=== PATIENT | male | born 1935 | race Caucasian/White ===

== ENCOUNTER 2016-11-25 09:21 | Emergency (ER) | payer MEDICARE ==
[~2016-11-25] VITALS: Ht 167.6 cm; Wt 61.0 kg
[~2016-11-25 09:21] MED LIST: ASPI1TAB69 PO; METO25TA3 PO; MULT1TAB84 PO; NITR1SUB3 SL; PLAV75TA29 PO; PRAV40TA2 PO; RANI150T PO; SYMB80AE INH; VITA100064 PO; VITA500T PO
[2016-11-25 09:22] VITALS: BP 113/62; PULSE 83; RESP 17; TEMP 97.6; O2SAT 96
[2016-11-25] MEDS ORDERED: ASPI81TA11 PO (10:25)
[2016-11-25] MEDS ORDERED: MULTCAP3 PO (10:25)
[2016-11-25] MEDS ORDERED: AUGM500T7 PO (10:45)
--- NOTE | 2016-11-25 10:46 | PD ---
HPI Chief Complaint: Bite or Sting Time Seen by Provider: 10:35 Travel History International Travel<30 days: No Contact w/Intl Traveler<30days: No Traveled to known affect area: No History of Present Illness HPI This 81-year-old male was bitten by his dog this morning. He was picking up the dog and apparently hurt it in some way. The dog bit him in the right forearm. He does not have any numbness or tingling. He does take Plavix as he has a heart stent. His skin is fragile and tears easily. The bleeding has stopped spontaneously. He is not having much pain. PFSH Past Medical History Hx Anticoagulant Therapy: Yes High Cholesterol: Yes Cerebrovascular Accident: Yes (X 2) GERD: Yes Hypertension: Yes Past Surgical History Cholecystectomy: Yes Joint Replacement: Yes (LEFT TOTAL SHOULDER) Social History Alcohol Use: No (QUIT 1977) Tobacco Use: No (FORMER) Substance Use: No Allergies-Medications (Allergen,Severity, Reaction): Coded Allergies: alendronate sodium (Unverified Allergy, Intermediate, unknown, 11/25/16) Reported Meds & Prescriptions Reported Meds & Active Scripts Active Pravastatin 40 Mg Tab 40 Mg PO DAILY Metoprolol Tartrate 25 Mg Tab 0.5 Mg PO BID Plavix (Clopidogrel Bisulfate) 75 Mg Tab 75 Mg PO DAILY Reported Aspirin EC (Aspirin) 81 Mg Tabdr 81 Mg PO DAILY Multivitamins (Multiple Vitamin) 1 Cap Cap 1 Tab PO DAILY Symbicort Inh (Budesonide/Formoterol Fumarate) 80-4.5 Mcg/Act Aero 2 Puff INH Q12HR Vitamin D3 (Cholecalciferol) 1,000 Unit Tab 1,000 Units PO DAILY Nitroglycerin SL (Nitroglycerin) 0.4 Mg Subl 0.4 Mg SL DIRECTED PRN ONE TABLET UNDER THE TONGUE NEEDED FOR CHEST PAIN, MAY REPEAT EVERY FIVE MINUTES FOR A TOTAL OF 3 DOSES OR CALL 911 IF NO RELIEF Review of Systems General / Constitutional: No: Fever, Chills Eyes: No: Diploplia, Blurred Vision HENT: No: Headaches Cardiovascular: No: Chest Pain or Discomfort Respiratory: No: Cough Gastrointestinal: No: Nausea, Vomiting Genitourinary: No: Urgency, Frequency Musculoskeletal: No: Myalgias Skin: No Rash Neurologic: No: Weakness Physical Exam Narrative GENERAL: Well-developed male SKIN: Focused skin assessment warm/dry. There are multiple ecchymotic areas. On the right forearm he has several puncture wounds that appear superficial with some associated bruising. There is no active bleeding HEAD: Atraumatic. Normocephalic. EYES: Pupils equal and round. No scleral icterus. No injection or drainage. ENT: No nasal bleeding or discharge. Mucous membranes pink and moist. NECK: Trachea midline. No JVD. CARDIOVASCULAR: Regular rate and rhythm. No murmur appreciated. RESPIRATORY: No accessory muscle use. Clear to auscultation. Breath sounds equal bilaterally. GASTROINTESTINAL: Abdomen soft, non-tender, nondistended. Hepatic and splenic margins not palpable. MUSCULOSKELETAL: No obvious deformities. No clubbing. No cyanosis. No edema. He has good strength in the affected arm and sensation is intact NEUROLOGICAL: Awake and alert. No obvious cranial nerve deficits. Motor grossly within normal limits. Normal speech. PSYCHIATRIC: Appropriate mood and affect; insight and judgment normal. Data Data Last Documented VS Vital Signs Date Time Temp Pulse Resp B/P (MAP) Pulse Ox O2 Delivery O2 Flow Rate FiO2 11/25/16 09:22 97.6 83 17 113/62 (79) 96 MDM Medical Decision Making Medical Screen Exam Complete: Yes Emergency Medical Condition: Yes Medical Record Reviewed: Yes Differential Diagnosis Differential includes dog bite right forearm Narrative Course This wound does not require suture repair. He will be placed on Augmentin 500 3 times a day for 5 days. Tetanus will be updated Diagnosis Primary Impression: Dog bite of right arm Qualified Codes: S41.151A - Open bite of right upper arm, initial encounter; W54.0XXA - Bitten by dog, initial encounter Additional Instructions: Return if redness, increased pain, purulent drainage, fever Scripts Amoxicillin-Clavulanate (Augmentin) 500-125 mg Tab 500 MG PO Q8H for Infection for 5 Days, TAB 0 Refills Prov: Dmitriy Shaffer MD 11/25/16 Disposition: 01 DISCHARGE HOME Condition: Stable Dmitriy Shaffer MD Nov 25, 2016 10:46
[2016-11-25] MEDS ORDERED: TETANUS/DIPHTHERIA TOXOID ADULT 0.5 ML VIAL IM ONE (11:00)
== END 2016-11-25 11:01 | disposition home or self-care (01) ==
LOC: PHED 09:21 → PHEFT 11:01
DX: S51.851A Open bite of right forearm, initial encounter (principal); W54.0XXA Bitten by dog, initial encounter; Z23 Encounter for immunization
CPT/HCPCS: 90471; 90714

== ENCOUNTER 2017-12-11 00:25 | Inpatient (IN) ==
[2017-12-11] MEDS ORDERED: Sod Chloride 0.9% Inj 1,000 ML IV.SIG ONE (03:33)
[2017-12-11 04:02] LABS: Baso % (Auto) 0.5 % (0.0-2.0); Eos # (Auto) 0.2 th/mm3 (0.0-0.4); Hematocrit 49.8 % (39.0-51.0); Hemoglobin 17.1 gm/dL (13.0-17.0); Lymph # (Auto) 1.5 th/mm3 (1.0-4.8); Lymph % (Auto) 17.3 % (9.0-44.0); Mean Corpuscular HGB Conc 34.4 % (32.0-36.0); Mean Corpuscular Hemoglobin 33.6 pg (27.0-34.0); Mean Corpuscular Volume 97.8 fL (80.0-100.0); Mean Platelet Volume 10.1 fL (7.0-11.0); Mono # (Auto) 0.8 th/mm3 (0.0-0.9); Mono % (Auto) 9.4 % (0.0-8.0); Neut # (Auto) 5.9 th/mm3 (1.8-7.7); Neut % (Auto) 69.8 % (16.0-70.0); Platelet Count 120 th/mm3 (150-450); Red Cell Distribution Width 12.8 % (11.6-17.2); White Blood Count 8.4 th/mm3 (4.0-11.0)
[2017-12-11 04:12] LABS: Activated Partial Thrombo Time 22.4 sec (23.4-31.7); Prothrombin Time 10.6 sec (9.8-11.6)
[2017-12-11 04:18] LABS: Albumin 4.6 g/dL (3.4-5.0); Anion Gap 5 meq/L (5-15); Aspartate Aminotransferase 29 U/L (15-37); Blood Urea Nitrogen 23 mg/dL (7-18); Calcium 9.7 mg/dL (8.5-10.1); Carbon Dioxide 32.8 meq/L (21.0-32.0); Chloride 101 meq/L (98-107); Glomerular Filtration Rate 68 mL/min (>89); Glucose,Random 86 mg/dL (74-106); Potassium 4.2 meq/L (3.5-5.1); Sodium 139 meq/L (136-145)
[2017-12-11 04:19] LABS: Alanine Aminotransferase 44 U/L (12-78)
[2017-12-11 04:22] LABS: Alkaline Phosphatase 102 U/L (45-117); Total Protein 8.4 g/dL (6.4-8.2)
--- NOTE | 2017-12-11 04:30 | ED ---
HPI General Chief complaint: GI Bleed Stated complaint: Gu Time Seen by Provider: 12/11/17 03:01 Source: patient Mode of arrival: ambulatory Limitations: no limitations History of Present Illness HPI Narrative: 82-year-old male came to the emergency room with history of pain and rectal bleeding. Patient says that last night he had a sharp pain in his right lower quadrant that lasted for a few seconds followed by an urge to move his bowels. When he went to the bathroom he noticed that he had liquid stool which was mostly blood. Followed by that episode he had 4 or 5 more episodes of bright red blood. These were all painless. Patient denies any lightheadedness, dizziness or syncopal episode. He has never had rectal bleeding like this before. Patient says that he had a colonoscopy many years ago and is not sure about the result. He was hemodynamically stable upon arrival. He is awake and answering questions appropriately. He seems little anxious but in no distress. No history of vomiting. Patient is on aspirin and Plavix. complaint: Reports gross hematochezia Onset (ago): hour(s) Pain Consistency: intermittent Severity: moderate Relieving factors: none Exacerbating factors: none Associated symptoms: Reports denies other symptoms Treatments Prior to Arrival: Reports none Related Data Home Medications Medication Instructions Recorded Confirmed aspirin [Aspir-Low] 81 mg PO DAILY 09/25/17 12/11/17 clopidogrel [Plavix] 75 mg PO DAILY 09/25/17 12/11/17 pravastatin 40 mg PO DAILY 09/25/17 12/11/17 Previous Rx's Medication Instructions Recorded pantoprazole [Protonix] 40 mg PO BID #60 tab 12/12/17 sennosides-docusate sodium [Senna 1 tab PO BID #60 tab 12/12/17 Plus] Allergies Allergy/AdvReac Type Severity Reaction Status Date / Time alendronate sodium Allergy Intermediate unknown Verified 12/11/17 00:47 Review of Systems ROS: all other systems reviewed are negative [facility] Medical History Medical History High cholesterol (Acute) Hypertension (Acute) Stroke (Acute) Surgical History Surgical History History of heart artery stent (Acute) History of total replacement of left shoulder joint (Acute) Hx of arthroscopy of left knee (Acute) Hx of cholecystectomy (Acute) Family History Family History Other Family history of hypertension Social History Social History Substance History: No History of Abuse Second Hand Smoke Exposure: No Smoking Status: Former smoker Tobacco Type: Cigarettes How Often Do You Have a Drink Containing Alcohol: Never Hx Recent Travel: No Recent Travel in [facility] within the Last 8 Weeks: No Recent Out of Country Travel within the Last 8 Weeks: No Immunization History Tetanus Immunization: <5 Years Exam Narrative Exam Narrative: GENERAL: Awake, alert, anxious, no obvious distress SKIN: Focused skin assessment warm/dry. HEAD: Atraumatic. Normocephalic. EYES: Pupils equal and round. No scleral icterus. No injection or drainage. ENT: No nasal bleeding or discharge. Mucous membranes pink and moist. NECK: Trachea midline. No JVD. CARDIOVASCULAR: Regular rate and rhythm. No murmur appreciated. RESPIRATORY: No accessory muscle use. Clear to auscultation. Breath sounds equal bilaterally. GASTROINTESTINAL: Abdomen soft, non-tender, nondistended. Hepatic and splenic margins not palpable. MUSCULOSKELETAL: No obvious deformities. No clubbing. No cyanosis. No edema. NEUROLOGICAL: Awake and alert. No obvious cranial nerve deficits. Motor grossly within normal limits. Normal speech. PSYCHIATRIC: Appropriate mood and affect; insight and judgment normal. Procedures Hemaprompt Stool Procedural Steps Taken: specimen placed in appropriate test area, developer placed on specimen and control areas and controls appropriately positive and negative Hemaprompt Stool Result: positive Additional Comments: Gross blood on the gloved finger Course Initial Documented Vital Signs Temperature 97.7 F 12/11/17 00:44 Pulse Rate 75 12/11/17 00:44 Respiratory Rate 18 12/11/17 00:44 Blood Pressure 159/69 H 12/11/17 00:44 Pulse Oximetry 96 12/11/17 00:44 Last Documented Vital Signs Temperature 98.1 F 12/12/17 16:00 Pulse Rate 104 H 12/12/17 16:00 Respiratory Rate 18 12/12/17 16:00 Blood Pressure 122/73 12/12/17 16:00 Pulse Oximetry 94 L 12/12/17 16:00 Medical Decision Making MDM Narrative Medical decision making narrative: 4:36 AM blood test results are back and within acceptable limits. Patient was given IV fluid bolus. He will require hospitalization and a GI consultation. I discussed the case with the hospitalist was accepted the patient. Medical Screen Exam Complete: Yes Emergency Medical Condition: Yes Lab Data Result diagrams: 12/12/17 12:02 12/12/17 04:37 Lab Results 12/11/17 12/11/17 12/11/17 Range/Units 03:54 03:54 03:54 WBC 8.4 (4.0-11.0) th/mm3 RBC 5.10 (4.50-5.90) mil/mm3 Hgb 17.1 H (13.0-17.0) gm/dL Hct 49.8 (39.0-51.0) % MCV 97.8 (80.0-100.0) fL MCH 33.6 (27.0-34.0) pg MCHC 34.4 (32.0-36.0) % RDW 12.8 (11.6-17.2) % Plt Count 120 L (150-450) th/mm3 MPV 10.1 (7.0-11.0) fL Neut % (Auto) 69.8 (16.0-70.0) % Lymph % (Auto) 17.3 (9.0-44.0) % Caldwell % (Auto) 9.4 H (0.0-8.0) % Eos % (Auto) 3.0 (0.0-4.0) % Baso % (Auto) 0.5 (0.0-2.0) % Neut # (Auto) 5.9 (1.8-7.7) th/mm3 Lymph # (Auto) 1.5 (1.0-4.8) th/mm3 Caldwell # (Auto) 0.8 (0.0-0.9) th/mm3 Eos # (Auto) 0.2 (0.0-0.4) th/mm3 Baso # (Auto) 0.0 (0.0-0.2) th/mm3 WBC Differential . Differential Comment Auto diff final PT 10.6 (9.8-11.6) sec INR 1.0 Ratio APTT 22.4 L (23.4-31.7) sec Sodium 139 (136-145) meq/L Potassium 4.2 (3.5-5.1) meq/L Chloride 101 (98-107) meq/L Carbon Dioxide 32.8 H (21.0-32.0) meq/L Anion Gap 5 (5-15) meq/L BUN 23 H (7-18) mg/dL Creatinine 1.04 (0.60-1.30) mg/dL Estimated GFR 68 L (>89) mL/min Random Glucose 86 (74-106) mg/dL Hemoglobin A1c (4.3-6.0) % Calcium 9.7 (8.5-10.1) mg/dL Phosphorus (2.5-4.9) mg/dL Magnesium (1.5-2.5) mg/dL Total Bilirubin 0.7 (0.2-1.0) mg/dL AST 29 (15-37) U/L ALT 44 (12-78) U/L Alkaline Phosphatase 102 (45-117) U/L Total Protein 8.4 H (6.4-8.2) g/dL Albumin 4.6 (3.4-5.0) g/dL TSH (0.358-3.740) uIU/mL Free T4 (0.76-1.46) ng/dL Blood Type Blood Type Recheck Antibody Screen 12/11/17 12/11/17 12/11/17 Range/Units 03:54 15:45 15:45 WBC (4.0-11.0) th/mm3 RBC (4.50-5.90) mil/mm3 Hgb 15.3 (13.0-17.0) gm/dL Hct (39.0-51.0) % MCV (80.0-100.0) fL MCH (27.0-34.0) pg MCHC (32.0-36.0) % RDW (11.6-17.2) % Plt Count (150-450) th/mm3 MPV (7.0-11.0) fL Neut % (Auto) (16.0-70.0) % Lymph % (Auto) (9.0-44.0) % Caldwell % (Auto) (0.0-8.0) % Eos % (Auto) (0.0-4.0) % Baso % (Auto) (0.0-2.0) % Neut # (Auto) (1.8-7.7) th/mm3 Lymph # (Auto) (1.0-4.8) th/mm3 Caldwell # (Auto) (0.0-0.9) th/mm3 Eos # (Auto) (0.0-0.4) th/mm3 Baso # (Auto) (0.0-0.2) th/mm3 WBC Differential Differential Comment PT (9.8-11.6) sec INR Ratio APTT (23.4-31.7) sec Sodium (136-145) meq/L Potassium (3.5-5.1) meq/L Chloride (98-107) meq/L Carbon Dioxide (21.0-32.0) meq/L Anion Gap (5-15) meq/L BUN (7-18) mg/dL Creatinine (0.60-1.30) mg/dL Estimated GFR (>89) mL/min Random Glucose (74-106) mg/dL Hemoglobin A1c 5.3 (4.3-6.0) % Calcium (8.5-10.1) mg/dL Phosphorus (2.5-4.9) mg/dL Magnesium (1.5-2.5) mg/dL Total Bilirubin (0.2-1.0) mg/dL AST (15-37) U/L ALT (12-78) U/L Alkaline Phosphatase (45-117) U/L Total Protein (6.4-8.2) g/dL Albumin (3.4-5.0) g/dL TSH (0.358-3.740) uIU/mL Free T4 (0.76-1.46) ng/dL Blood Type A Positive Blood Type Recheck Required Antibody Screen Negative 12/11/17 12/12/17 12/12/17 Range/Units 16:04 00:59 04:37 WBC 9.0 (4.0-11.0) th/mm3 RBC 4.37 L (4.50-5.90) mil/mm3 Hgb 15.0 14.5 (13.0-17.0) gm/dL Hct 42.7 (39.0-51.0) % MCV 97.8 (80.0-100.0) fL MCH 33.2 (27.0-34.0) pg MCHC 34.0 (32.0-36.0) % RDW 12.7 (11.6-17.2) % Plt Count 109 L (150-450) th/mm3 MPV 10.3 (7.0-11.0) fL Neut % (Auto) 74.4 H (16.0-70.0) % Lymph % (Auto) 13.3 (9.0-44.0) % Caldwell % (Auto) 9.5 H (0.0-8.0) % Eos % (Auto) 2.4 (0.0-4.0) % Baso % (Auto) 0.4 (0.0-2.0) % Neut # (Auto) 6.7 (1.8-7.7) th/mm3 Lymph # (Auto) 1.2 (1.0-4.8) th/mm3 Caldwell # (Auto) 0.9 (0.0-0.9) th/mm3 Eos # (Auto) 0.2 (0.0-0.4) th/mm3 Baso # (Auto) 0.0 (0.0-0.2) th/mm3 WBC Differential . Differential Comment Auto diff final PT (9.8-11.6) sec INR Ratio APTT (23.4-31.7) sec Sodium (136-145) meq/L Potassium (3.5-5.1) meq/L Chloride (98-107) meq/L Carbon Dioxide (21.0-32.0) meq/L Anion Gap (5-15) meq/L BUN (7-18) mg/dL Creatinine (0.60-1.30) mg/dL Estimated GFR (>89) mL/min Random Glucose (74-106) mg/dL Hemoglobin A1c (4.3-6.0) % Calcium (8.5-10.1) mg/dL Phosphorus (2.5-4.9) mg/dL Magnesium (1.5-2.5) mg/dL Total Bilirubin (0.2-1.0) mg/dL AST (15-37) U/L ALT (12-78) U/L Alkaline Phosphatase (45-117) U/L Total Protein (6.4-8.2) g/dL Albumin (3.4-5.0) g/dL TSH 1.120 (0.358-3.740) uIU/mL Free T4 1.01 (0.76-1.46) ng/dL Blood Type Blood Type Recheck Antibody Screen 12/12/17 12/12/17 12/12/17 Range/Units 04:37 08:21 12:02 WBC (4.0-11.0) th/mm3 RBC (4.50-5.90) mil/mm3 Hgb 15.9 14.9 (13.0-17.0) gm/dL Hct (39.0-51.0) % MCV (80.0-100.0) fL MCH (27.0-34.0) pg MCHC (32.0-36.0) % RDW (11.6-17.2) % Plt Count (150-450) th/mm3 MPV (7.0-11.0) fL Neut % (Auto) (16.0-70.0) % Lymph % (Auto) (9.0-44.0) % Caldwell % (Auto) (0.0-8.0) % Eos % (Auto) (0.0-4.0) % Baso % (Auto) (0.0-2.0) % Neut # (Auto) (1.8-7.7) th/mm3 Lymph # (Auto) (1.0-4.8) th/mm3 Caldwell # (Auto) (0.0-0.9) th/mm3 Eos # (Auto) (0.0-0.4) th/mm3 Baso # (Auto) (0.0-0.2) th/mm3 WBC Differential Differential Comment PT (9.8-11.6) sec INR Ratio APTT (23.4-31.7) sec Sodium 142 (136-145) meq/L Potassium 4.1 (3.5-5.1) meq/L Chloride 104 (98-107) meq/L Carbon Dioxide 27.0 (21.0-32.0) meq/L Anion Gap 11 (5-15) meq/L BUN 14 (7-18) mg/dL Creatinine 0.78 (0.60-1.30) mg/dL Estimated GFR Greater than 89 (>89) mL/min Random Glucose 72 L (74-106) mg/dL Hemoglobin A1c (4.3-6.0) % Calcium 8.3 L D (8.5-10.1) mg/dL Phosphorus 2.1 L (2.5-4.9) mg/dL Magnesium 2.1 (1.5-2.5) mg/dL Total Bilirubin 0.9 (0.2-1.0) mg/dL AST 37 (15-37) U/L ALT 39 (12-78) U/L Alkaline Phosphatase 91 (45-117) U/L Total Protein 6.6 D (6.4-8.2) g/dL Albumin 3.6 D (3.4-5.0) g/dL TSH (0.358-3.740) uIU/mL Free T4 (0.76-1.46) ng/dL Blood Type Blood Type Recheck Antibody Screen Imaging Data Radiologist's impression: Abdomen/Pelvis CT 12/11/17 00:00 CONCLUSION: 1. Ruben diverticulosis without perceptible diverticulitis or other acute inflammatory changes. No well-defined or measurable mass. 2. Small hiatal hernia. 3. Liver is mild fatty infiltrated. Previous cholecystectomy. 4. A few benign-appearing cysts of each kidney. Also a small nonobstructing stone of the left kidney. 5. Chronic compression deformity of L2. No acute bony abnormality seen. Discharge Plan Discharge Disposition Patient Disposition: 30 Still Patient Discharge Condition Condition: Good Discharge Order Discharge Orders: Discharge Order (Routine); Ordered 12/12/17 Ordered By: Isidoro Daly Discharge Details Anticipated Discharge Date: 12/12/17 Discharge Comment: DC TO HOME TODAY Physicians Team ED Provider: Robi Lemos Primary Care Provider: Wilma Dominguez Attending Provider: Isidoro Daly Other Providers: Alexandra Redd Status ED Status: Left Department Discharge Information Discharge Date/Time: 12/11/17 07:30
[2017-12-11] MEDS ORDERED: Bisacodyl 10 MG Supp RECTAL PRN ×2 (04:33→15:41)
[2017-12-11] MEDS: Sod Chloride 0.9% Inj 1,000 ML IV.CONT SCH (05:15)
[2017-12-11] MEDS ORDERED: Diatrizoate Meglum/Diatrizoate Sod Liq 9 ML UDC PO ONE (09:00)
--- NOTE | 2017-12-11 09:15 | P.CONGI ---
History of Present Illness Consult date: 12/11/17 Chief complaint: GI BLEED, HEMATOCHEZIA History of Present Illness: This is 82-year-old male with pmh of cardiac stents on aspirin and Plavix who presented with abd pain and rectal bleeding. Patient says that last night he had a sharp pain in his right lower quadrant that lasted for a few seconds followed by an urge to move his bowels, then he had liquid stool which was mostly blood followed by more episodes of nothing but blood which was mix of dark and bright blood. He was going every half hr, had one episode this morning as well. Patient denies previous hx of this. Patient had a colonoscopy many years ago. He is hemodynamically stable. Denies nausea, vomiting, hematemesis. hgb today is 17.1 <Mercedes Cueva - Last Filed: 12/11/17 09:16> Chief complaint: GI bleed, hematochezia <Alexandra Redd - Last Filed: 12/11/17 19:21> Review of Systems All other systems reviewed negative except as stated in HPI <Mercedes Cueva - Last Filed: 12/11/17 09:16> PMFSH - History History Provided By: Patient - Medical History Medical History: Medical History (Last Reviewed 12/11/17 @ 06:22 by Krysta Daniel RN) High cholesterol Hypertension Stroke - Surgical History Surgical History: Surgical History (Last Reviewed 12/11/17 @ 06:22 by Krysta Daniel RN) History of heart artery stent History of total replacement of left shoulder joint Hx of arthroscopy of left knee Hx of cholecystectomy - Tobacco History Second Hand Smoke Exposure: No Tobacco Use In Past 30 Days: No Smoking Status: Former smoker Tobacco Type: Cigarettes - Alcohol History How Often Do You Have a Drink Containing Alcohol: Never - Substance Use History Substance History: No History of Abuse - Travel History Recent Travel in the [place] Within the Last 8 Weeks: No Recent Travel Out of the Country Within the Last 8 Weeks: No - Immunization History Tetanus Immunization: <5 Years <Mercedes Cueva - Last Filed: 12/11/17 09:16> - Medical History Medical History: Medical History (Last Reviewed 12/11/17 @ 15:34 by Isidoro Daly DO) High cholesterol Hypertension Stroke - Surgical History Surgical History: Surgical History (Last Reviewed 12/11/17 @ 15:34 by Isidoro Daly DO) History of heart artery stent History of total replacement of left shoulder joint Hx of arthroscopy of left knee Hx of cholecystectomy - Family History Family History: Family History (Last Updated 12/11/17 @ 15:34 by Isidoro Daly DO) Other Family history of hypertension <Alexandra Redd - Last Filed: 12/11/17 19:21> Medications and Allergies Active Medications: Active Medications Al Hydroxide/Mg Hydroxide (Milk Of Magnesia Liq) 30 ml PO Q12H PRN PRN Reason: Mild Constipation Bisacodyl (Dulcolax Supp) 10 mg RECTAL DAILY PRN PRN Reason: SEVERE CONSITIPATION Sodium Chloride (Ns Inj) 1,000 mls @ 70 mls/hr IV.CONT .[id number] [facility] Last Admin: 12/11/17 05:15 Dose: 70 mls/hr Lactulose (Lactulose Liq) 30 ml PO DAILY PRN PRN Reason: SEVERE CONSITIPATION Sennosides (Senokot) 17.2 mg PO Q12H PRN PRN Reason: Moderate Constipation Sodium Chloride (Ns Flush) 2 ml IV.FLUSH PRN PRN PRN Reason: FLUSH AFTER USING IV ACCESS <Mercedes Cueva - Last Filed: 12/11/17 09:16> Active Medications: Active Medications Al Hydroxide/Mg Hydroxide (Milk Of Magnesia Liq) 30 ml PO Q12H PRN PRN Reason: Mild Constipation Bisacodyl (Dulcolax Supp) 10 mg RECTAL DAILY PRN PRN Reason: SEVERE CONSITIPATION Sodium Chloride (Ns Inj) 1,000 mls @ 70 mls/hr IV.CONT .[id number] [facility] Last Admin: 12/11/17 05:15 Dose: 70 mls/hr Lactulose (Lactulose Liq) 30 ml PO DAILY PRN PRN Reason: SEVERE CONSITIPATION Pantoprazole Sodium (Protonix Inj) 40 mg IV.PUSH Q12H [facility] Last Admin: 12/11/17 11:24 Dose: 40 mg Polyethylene Glycol/Electrolytes (Colyte Liq) 4,000 ml PO ONCE ONE Stop: 12/11/17 16:01 Sennosides (Senokot) 17.2 mg PO Q12H PRN PRN Reason: Moderate Constipation Sodium Chloride (Ns Flush) 2 ml IV.FLUSH PRN PRN PRN Reason: FLUSH AFTER USING IV ACCESS <Alexandra Redd - Last Filed: 12/11/17 19:21> Allergies Allergy/AdvReac Type Severity Reaction Status Date / Time alendronate sodium Allergy Intermediate unknown Verified 12/11/17 00:47 Home Medications Medication Instructions Recorded Confirmed Type aspirin [Aspir-Low] 81 mg PO DAILY 09/25/17 12/11/17 History clopidogrel [Plavix] 75 mg PO DAILY 09/25/17 12/11/17 History pravastatin 40 mg PO DAILY 09/25/17 12/11/17 History Exam Vital signs: Vital Signs 12/11/17 00:44 12/11/17 00:47 12/11/17 03:37 Temperature 97.7 F Pulse Rate 75 75 Respiratory Rate 18 18 Blood Pressure 159/69 H 169/84 H Pulse Oximetry 96 95 97 12/11/17 04:12 12/11/17 07:11 12/11/17 08:00 Temperature 97.8 F 97.2 F L Pulse Rate 83 95 H Respiratory Rate 18 Blood Pressure 161/76 H 148/96 H Pulse Oximetry 98 93 L Intake & Output 12/10/17 12/11/17 12/11/17 19:59 06:59 18:59 Intake Total Balance Weight Intake: IV NS Inj 1,000 ML @ Wide Open IV. SIG BOLUS ONE Rx#:[id number] - Constitutional no acute distress - Routine HEENT Exam Head: Present: normocephalic - Routine Neck Exam Present: supple - Routine Cardiovascular Exam Present: RRR - Routine Abdominal Exam Present: soft, normoactive bowel sounds. Absent: tenderness, distended - Routine Neurological Exam Present: alert, oriented X3 <Mercedes Cueva - Last Filed: 12/11/17 09:16> Vital signs: Vital Signs 12/11/17 00:44 12/11/17 00:47 12/11/17 03:37 Temperature 97.7 F Pulse Rate 75 75 Respiratory Rate 18 18 Blood Pressure 159/69 H 169/84 H Pulse Oximetry 96 95 97 12/11/17 04:12 12/11/17 07:11 12/11/17 08:00 Temperature 97.8 F 97.2 F L Pulse Rate 83 95 H Respiratory Rate 18 Blood Pressure 161/76 H 148/96 H Pulse Oximetry 98 93 L 12/11/17 12:00 Temperature 97.3 F L Pulse Rate 89 Respiratory Rate 18 Blood Pressure 152/84 H Pulse Oximetry 96 Intake & Output 12/10/17 12/11/17 12/11/17 19:59 06:59 18:59 Intake Total Balance Weight Intake: IV NS Inj 1,000 ML @ Wide Open IV. SIG BOLUS ONE Rx#:[id number] <Alexandra Redd - Last Filed: 12/11/17 19:21> Results - Labs CBC & Chem 7: 12/11/17 03:54 12/11/17 03:54 Labs: Laboratory Results - last 24 hr 12/11/17 12/11/17 12/11/17 03:54 03:54 03:54 WBC 8.4 RBC 5.10 Hgb 17.1 H Hct 49.8 MCV 97.8 MCH 33.6 MCHC 34.4 RDW 12.8 Plt Count 120 L MPV 10.1 Neut % (Auto) 69.8 Lymph % (Auto) 17.3 [place] % (Auto) 9.4 H Eos % (Auto) 3.0 Baso % (Auto) 0.5 Neut # (Auto) 5.9 Lymph # (Auto) 1.5 [place] # (Auto) 0.8 Eos # (Auto) 0.2 Baso # (Auto) 0.0 WBC Differential . Differential Comment Auto diff final PT 10.6 INR 1.0 APTT 22.4 L Sodium 139 Potassium 4.2 Chloride 101 Carbon Dioxide 32.8 H Anion Gap 5 BUN 23 H Creatinine 1.04 Estimated GFR 68 L Random Glucose 86 Calcium 9.7 Total Bilirubin 0.7 AST 29 ALT 44 Alkaline Phosphatase 102 Total Protein 8.4 H Albumin 4.6 Blood Type Blood Type Recheck Antibody Screen 12/11/17 03:54 WBC RBC Hgb Hct MCV MCH MCHC RDW Plt Count MPV Neut % (Auto) Lymph % (Auto) [place] % (Auto) Eos % (Auto) Baso % (Auto) Neut # (Auto) Lymph # (Auto) [place] # (Auto) Eos # (Auto) Baso # (Auto) WBC Differential Differential Comment PT INR APTT Sodium Potassium Chloride Carbon Dioxide Anion Gap BUN Creatinine Estimated GFR Random Glucose Calcium Total Bilirubin AST ALT Alkaline Phosphatase Total Protein Albumin Blood Type A Positive Blood Type Recheck Required Antibody Screen Negative <Mercedes Cueva - Last Filed: 12/11/17 09:16> - Labs CBC & Chem 7: 12/11/17 15:45 12/11/17 03:54 Labs: Laboratory Results - last 24 hr 12/11/17 12/11/17 12/11/17 03:54 03:54 03:54 WBC 8.4 RBC 5.10 Hgb 17.1 H Hct 49.8 MCV 97.8 MCH 33.6 MCHC 34.4 RDW 12.8 Plt Count 120 L MPV 10.1 Neut % (Auto) 69.8 Lymph % (Auto) 17.3 [place] % (Auto) 9.4 H Eos % (Auto) 3.0 Baso % (Auto) 0.5 Neut # (Auto) 5.9 Lymph # (Auto) 1.5 [place] # (Auto) 0.8 Eos # (Auto) 0.2 Baso # (Auto) 0.0 WBC Differential . Differential Comment Auto diff final PT 10.6 INR 1.0 APTT 22.4 L Sodium 139 Potassium 4.2 Chloride 101 Carbon Dioxide 32.8 H Anion Gap 5 BUN 23 H Creatinine 1.04 Estimated GFR 68 L Random Glucose 86 Calcium 9.7 Total Bilirubin 0.7 AST 29 ALT 44 Alkaline Phosphatase 102 Total Protein 8.4 H Albumin 4.6 Blood Type Blood Type Recheck Antibody Screen 12/11/17 03:54 WBC RBC Hgb Hct MCV MCH MCHC RDW Plt Count MPV Neut % (Auto) Lymph % (Auto) [place] % (Auto) Eos % (Auto) Baso % (Auto) Neut # (Auto) Lymph # (Auto) [place] # (Auto) Eos # (Auto) Baso # (Auto) WBC Differential Differential Comment PT INR APTT Sodium Potassium Chloride Carbon Dioxide Anion Gap BUN Creatinine Estimated GFR Random Glucose Calcium Total Bilirubin AST ALT Alkaline Phosphatase Total Protein Albumin Blood Type A Positive Blood Type Recheck Required Antibody Screen Negative <Alexandra Redd - Last Filed: 12/11/17 19:21> Assessment and Plan - Plan - LGIB/abd pain- Patient says that last night he had a sharp pain in his right lower quadrant that lasted for a few seconds followed by an urge to move his bowels, then he had liquid stool which was mostly blood followed by more episodes of nothing but blood which was mix of dark and bright blood. He was going every half hr, had one episode this morning as well. Patient denies previous hx of this. Patient had a colonoscopy many years ago. He is hemodynamically stable. Denies nausea, vomiting, hematemesis. hgb today is 17.1 - pmh of cardiac stents on aspirin and Plavix (on hold) Plan: - Clear liquid - CT of a/p - Serial HH - Transfuse as needed - IV hydration - PPI - Golytely today - Colonoscopy in the am - NPO mn - Supportive care - Pt seen and examined by Dr. Redd and myself and this note is written on her behalf. <Mercedes Cueva - Last Filed: 12/11/17 09:16> - Attending Attestation seen, examined agree with above <Alexandra Redd - Last Filed: 12/11/17 19:21>
[2017-12-11] MEDS: Pantoprazole Inj 40 MG Vial IV.PUSH SCH ×2 (11:24→22:04)
[2017-12-11] MEDS ORDERED: Morphine Inj 4 MG/ML Vial IV.PUSH PRN ×3 (15:41)
[2017-12-11] MEDS ORDERED: Naloxone Inj 0.4 MG/ML Vial IV.PUSH PRN (15:41)
[2017-12-11] MEDS ORDERED: Morphine Sulfate Inj 2 MG/ML Vial IV.PUSH PRN (15:41)
[2017-12-11] MEDS ORDERED: oxyCODONE/Acetaminophen 10/325 Tablet PO PRN (15:41)
[2017-12-11] MEDS ORDERED: Acetaminophen 325 MG Tablet PO PRN ×2 (15:41)
--- NOTE | 2017-12-11 15:44 | P.HPIM ---
History of Present Illness Service: [facility] Primary Care Physician: Wilma Dominguez MD Chief Complaint: GI BLEEDING History of Present Illness: Patient was seen at 10:50 AM Patient is an 82-year-old male came into the emergency department with a history of pain and rectal bleeding. Patient states last night that he had a sharp pain in his right lower quadrant and lasted for a few seconds. Then he started to have an urge to move his bowels. When he went to the bathroom he noted that he was having liquids stool that was mostly blood. He then had multiple episodes of 4-5+ if not more of bright red blood per rectum. These were all painless. Patient denied any lightheadedness, denies any dizziness, denied any syncopal episodes. Never had rectal bleeding like this before. States he has had a colonoscopy in the past and has had some polyps removed. Denies any nausea or vomiting. He is chronically on aspirin and Plavix. Patient is been noted to have this chronic hematochezia for the past 2 days or so. Been intermittent and now it has been almost every time he had a bowel movement either has blood or stool streaked with with lots of blood Past medical history is significant for hyperlipidemia and hypertension and history of stroke is chronically on aspirin and Plavix and pravastatin only. Has a history of cardiac stenting as well as total replacement of the left shoulder and arthroscopic of left knee and cholecystectomy Family history is positive for hypertension Inpatient Certification: I certify that the inpatient services were ordered in accordance with Medicare regulations governing the order. This includes certification that hospital inpatient services are reasonable and necessary and in the case of services not specified as inpatient-only under 42 CFR 419.22(n), that they are appropriately provided as inpatient services in accordance to with the 2-midnight benchmark under 43 CFR 412.3(e) Estimated Total Length of Stay (Days): 2 Plans for Post Hospital Care: Not yet determined Review of Systems All other systems reviewed negative except as stated in HPI PMFSH - History History Provided By: Patient - Medical History Medical History: Medical History (Last Reviewed 12/11/17 @ 15:34 by Isidoro Daly DO) High cholesterol Hypertension Stroke - Surgical History Surgical History: Surgical History (Last Reviewed 12/11/17 @ 15:34 by Isidoro Daly DO) History of heart artery stent History of total replacement of left shoulder joint Hx of arthroscopy of left knee Hx of cholecystectomy - Family History Family History: Family History (Last Updated 12/11/17 @ 15:34 by Isidoro Daly DO) Other Family history of hypertension - Social History I have reviewed the patient's Social History: No - Tobacco History Second Hand Smoke Exposure: No Tobacco Use In Past 30 Days: No Smoking Status: Former smoker Tobacco Type: Cigarettes - Alcohol History How Often Do You Have a Drink Containing Alcohol: Never - Substance Use History Substance History: No History of Abuse - Travel History History of Recent Travel: No Recent Travel in the [place] Within the Last 8 Weeks: No Recent Travel Out of the Country Within the Last 8 Weeks: No - Immunization History Tetanus Immunization: <5 Years Hx Influenza Vaccine This Season: Yes Medications and Allergies Active Medications: Active Medications Al Hydroxide/Mg Hydroxide (Milk Of Magnesia Liq) 30 ml PO Q12H PRN PRN Reason: Mild Constipation Bisacodyl (Dulcolax Supp) 10 mg RECTAL DAILY PRN PRN Reason: SEVERE CONSITIPATION Sodium Chloride (Ns Inj) 1,000 mls @ 70 mls/hr IV.CONT .[id number] [facility] Last Admin: 12/11/17 05:15 Dose: 70 mls/hr Lactulose (Lactulose Liq) 30 ml PO DAILY PRN PRN Reason: SEVERE CONSITIPATION Pantoprazole Sodium (Protonix Inj) 40 mg IV.PUSH Q12H [facility] Last Admin: 12/11/17 11:24 Dose: 40 mg Polyethylene Glycol/Electrolytes (Colyte Liq) 4,000 ml PO ONCE ONE Stop: 12/11/17 16:01 Sennosides (Senokot) 17.2 mg PO Q12H PRN PRN Reason: Moderate Constipation Sodium Chloride (Ns Flush) 2 ml IV.FLUSH PRN PRN PRN Reason: FLUSH AFTER USING IV ACCESS Allergies Allergy/AdvReac Type Severity Reaction Status Date / Time alendronate sodium Allergy Intermediate unknown Verified 12/11/17 00:47 Home Medications Medication Instructions Recorded Confirmed Type aspirin [Aspir-Low] 81 mg PO DAILY 09/25/17 12/11/17 History clopidogrel [Plavix] 75 mg PO DAILY 09/25/17 12/11/17 History pravastatin 40 mg PO DAILY 09/25/17 12/11/17 History Exam Vital signs: Vital Signs 12/11/17 00:44 12/11/17 00:47 12/11/17 03:37 Temperature 97.7 F Pulse Rate 75 75 Respiratory Rate 18 18 Blood Pressure 159/69 H 169/84 H Pulse Oximetry 96 95 97 12/11/17 04:12 12/11/17 07:11 12/11/17 08:00 Temperature 97.8 F 97.2 F L Pulse Rate 83 95 H Respiratory Rate 18 Blood Pressure 161/76 H 148/96 H Pulse Oximetry 98 93 L 12/11/17 12:00 Temperature 97.3 F L Pulse Rate 89 Respiratory Rate 18 Blood Pressure 152/84 H Pulse Oximetry 96 Intake & Output 12/10/17 12/11/17 12/11/17 19:59 06:59 18:59 Intake Total Balance Weight Intake: IV NS Inj 1,000 ML @ Wide Open IV. SIG BOLUS ONE Rx#:[id number] Narrative: Exam Narrative: GENERAL: Awake, alert, anxious, no obvious distress SKIN: Focused skin assessment warm/dry. No obvious rashes HEAD: Atraumatic. Normocephalic. EYES: Pupils equal and round. No scleral icterus. No injection or drainage. PERRLA EOMI ENT: No nasal bleeding or discharge. Mucous membranes pink and moist. Tongue is midline NECK: Trachea midline. No JVD. Neck is supple CARDIOVASCULAR: Regular rate and rhythm. No murmur appreciated. S1-S2 no S3-S4 RESPIRATORY: No accessory muscle use. Clear to auscultation. Breath sounds equal bilaterally. GASTROINTESTINAL: Abdomen soft, non-tender, nondistended. Hepatic and splenic margins not palpable. MUSCULOSKELETAL: No obvious deformities. No clubbing. No cyanosis. No edema. NEUROLOGICAL: Awake and alert. No obvious cranial nerve deficits. Motor grossly within normal limits. Normal speech. PSYCHIATRIC: Appropriate mood and affect; insight and judgment normal. Results - Labs CBC & Chem 7: 12/11/17 03:54 12/11/17 03:54 Labs: Short CBC 12/11/17 Range/Units 03:54 WBC 8.4 (4.0-11.0) th/mm3 Hgb 17.1 H (13.0-17.0) gm/dL Hct 49.8 (39.0-51.0) % Plt Count 120 L (150-450) th/mm3 BMP 12/11/17 03:54 Sodium 139 Potassium 4.2 Chloride 101 Carbon Dioxide 32.8 H BUN 23 H Creatinine 1.04 Calcium 9.7 Liver Function 12/11/17 Range/Units 03:54 Total Bilirubin 0.7 (0.2-1.0) mg/dL AST 29 (15-37) U/L ALT 44 (12-78) U/L Alkaline Phosphatase 102 (45-117) U/L Albumin 4.6 (3.4-5.0) g/dL Caprini VTE Risk Assessment Caprini VTE Risk Assessment: Moderate/High Risk (score >= 2) Caprini Risk Assessment Model: Point Value = 1 Point Value = 2 Point Value = 3 Point Value = 5 Age 41-60 Minor surgery BMI > 25 kg/m2 Swollen legs Varicose veins or History of unexplained or recurrent spontaneous Oral contraceptives or hormone replacement Sepsis (< 1 month) Serious lung disease, including pneumonia (< 1 month) Abnormal pulmonary function Acute myocardial infarction Congestive heart failure (< 1 month) History of inflammatory bowel disease Medical patient at bed rest Age 61-74 Arthroscopic surgery Major open surgery (> 45 min) Laparoscopic surgery (> 45 min) Malignancy Confined to bed (> 72 hours) Immobilizing plaster cast Central venous access Age >= 75 History of VTE Family history of VTE Factor V Leiden Prothrombin [id number] Lupus anticoagulant Anticardiolipin antibodies Elevated serum homocysteine Heparin-induced thrombocytopenia Other congenital or acquired thrombophilia Stroke (< 1 month) Elective arthroplasty Hip, pelvis, or leg fracture Acute spinal cord injury (< 1 month) Prophylaxis Regimen: Total Risk Factor Score Risk Level Prophylaxis Regimen 0-1 Low Early ambulation 2 Moderate Order ONE of the following: *Sequential Compression Device (SCD) *Heparin 5000 units SQ BID 3-4 Higher Order ONE of the following medications: *Heparin 5000 units SQ TID *Enoxaparin/Lovenox 40 mg SQ daily (WT < 150 kg, CrCl > 30 mL/min) *Enoxaparin/Lovenox 30 mg SQ daily (WT < 150 kg, CrCl > 10-29 mL/min) *Enoxaparin/Lovenox 30 mg SQ BID (WT < 150 kg, CrCl > 30 mL/min) AND/OR *Sequential Compression Device (SCD) 5 or more Highest Order ONE of the following medications: *Heparin 5000 units SQ TID (Preferred with Epidurals) *Enoxaparin/Lovenox 40 mg SQ daily (WT < 150 kg, CrCl > 30 mL/min) *Enoxaparin/Lovenox 30 mg SQ daily (WT < 150 kg, CrCl > 10-29 mL/min) *Enoxaparin/Lovenox 30 mg SQ BID (WT < 150 kg, CrCl > 30 mL/min) AND *Sequential Compression Device (SCD) Assessment and Plan - Plan Lower GI bleeding with heme positive stool per the emergency department Suspected diverticular bleed due to the painless component Chronic anticoagulation on aspirin and Plavix with history of stroke and history of coronary artery disease with history of coronary stent History of cardiac stents on chronic aspirin and Plavix both on hold Chronic anticoagulation on aspirin and Plavix Hyperlipidemia on statin Anemia secondary to GI bleeding A.m. labs For colonoscopy tomorrow Prep tonight On clear liquids CT abdomen and pelvis was ordered-- has not been done yet Hypertension by history History of stroke Currently on Protonix twice daily Code Status: Full code Discussed Condition With: RN and patient and case management and family Discharge Planning: Once cleared by GI and hemoglobin is stable H&P: Quality - VTE Deep Vein Thrombosis/Pulmonary Embolism Present on Admission: No
[2017-12-11] MEDS ORDERED: PEG 3350/E-Lyte Soln 4000 ML Bottle PO ONE (16:00)
[2017-12-11 17:04] LABS: Free T4 (Free Thyroxine) 1.01 ng/dL (0.76-1.46); Thyroid Stimulating Hormone 1.12 uIU/mL (0.358-3.740)
--- NOTE | 2017-12-11 17:33 | CT ---
EXAM DATE: 12/11/2017 5:25 PM EST AGE/SEX: 82 years / Male INDICATIONS: Blood in stool. CLINICAL DATA: This is the patient's initial encounter. Patient reports that signs and symptoms have been present for 1 day and indicates a pain score of 2/10. MEDICAL/SURGICAL HISTORY: Hypertension. Stroke. Cardiovascular disease. Coronary artery stent . Cholecystectomy. ORAL CONTRAST: Prescribed oral contrast ingested. RADIATION DOSE: 5.30 CTDI (mGy) COMPARISON: No prior exams available for comparison. TECHNIQUE: Multiple contiguous axial images were obtained through the abdomen and pelvis following b olus infusion of 95 ml Omnipaque 350 (iohexol) nonionic water-soluble contrast as a single exam dos e. Prescribed oral contrast ingested. Using automated exposure control and adjustment of the mA and/ or kV according to patient size, radiation dose was kept as low as reasonably achievable to obtain op timal diagnostic quality images. DICOM format image data is available electronically for review and comparison. FINDINGS: Liver is slightly fatty and rotated. Spleen, pancreas and adrenal glands are within normal limits. Th ere are a few scattered cysts of each kidney measuring up to 2.4 cm on the right and up to 1 cm on th e left. There is a 3 mm nonobstructing left mid zone stone. No other stones or hydronephrosis/hydrour eter. Florid diverticulosis and chronic diverticular changes seen of the sigmoid colon. No acute inflammato ry changes are demonstrated. No well-defined/measurable mass. Nonobstructive bowel gas pattern. Small hiatal hernia noted. There is no free fluid or free air. No lymphadenopathy. Atherosclerotic abdominal aorta. No aneurysm. No infiltrate or effusion of the visualized lung bases. No acute bony abnormality demonstrated. Sever e, chronic appearing compression deformities seen of L2. CONCLUSION: 1. Ruben diverticulosis without perceptible diverticulitis or other acute inflammatory changes. No wel l-defined or measurable mass. 2. Small hiatal hernia. 3. Liver is mild fatty infiltrated. Previous cholecystectomy. 4. A few benign-appearing cysts of each kidney. Also a small nonobstructing stone of the left kidney . 5. Chronic compression deformity of L2. No acute bony abnormality seen. Electronically signed by: Emile Damon MD 12/11/2017 5:31 PM EST
[2017-12-11] MEDS: Senna/Docusate Sodium 8.6/50 MG Tablet PO SCH (21:47)
[2017-12-12] MEDS ORDERED: Chlorhexidine Gluconate 2% 1 Pack (2 Cloths) TOPICAL ONE (01:47)
[2017-12-12] MEDS ORDERED: Metoprolol Tartrate 25 MG Tablet PO ONE (01:47)
[2017-12-12] MEDS ORDERED: Sodium Chlor 0.9% Inj 500 ML IV.SIG SCH (02:00)
[2017-12-12 05:44] LABS: Baso % (Auto) 0.4 % (0.0-2.0); Eos # (Auto) 0.2 th/mm3 (0.0-0.4); Eos % (Auto) 2.4 % (0.0-4.0); Hematocrit 42.7 % (39.0-51.0); Hemoglobin 14.5 gm/dL (13.0-17.0); Lymph # (Auto) 1.2 th/mm3 (1.0-4.8); Lymph % (Auto) 13.3 % (9.0-44.0); Mean Corpuscular Hemoglobin 33.2 pg (27.0-34.0); Mean Corpuscular Volume 97.8 fL (80.0-100.0); Mean Platelet Volume 10.3 fL (7.0-11.0); Mono # (Auto) 0.9 th/mm3 (0.0-0.9); Mono % (Auto) 9.5 % (0.0-8.0); Neut # (Auto) 6.7 th/mm3 (1.8-7.7); Neut % (Auto) 74.4 % (16.0-70.0); Platelet Count 109 th/mm3 (150-450); Red Blood Count 4.37 mil/mm3 (4.50-5.90); Red Cell Distribution Width 12.7 % (11.6-17.2)
[2017-12-12 06:23] LABS: Alanine Aminotransferase 39 U/L (12-78); Albumin 3.6 g/dL (3.4-5.0); Alkaline Phosphatase 91 U/L (45-117); Anion Gap 11 meq/L (5-15); Aspartate Aminotransferase 37 U/L (15-37); Blood Urea Nitrogen 14 mg/dL (7-18); Calcium 8.3 mg/dL (8.5-10.1); Chloride 104 meq/L (98-107); Glomerular Filtration Rate Greater Than 89 mL/min (>89); Glucose,Random 72 mg/dL (74-106); Magnesium 2.1 mg/dL (1.5-2.5); Phosphorus 2.1 mg/dL (2.5-4.9); Potassium 4.1 meq/L (3.5-5.1); Sodium 142 meq/L (136-145); Total Protein 6.6 g/dL (6.4-8.2)
[2017-12-12] MEDS: Senna/Docusate Sodium 8.6/50 MG Tablet PO SCH (09:36)
[2017-12-12] MEDS: Sod Chloride 0.9% Inj 1,000 ML IV.CONT SCH ×2 (09:37→11:40)
[2017-12-12] MEDS ORDERED: Phenylephrine/NS 1000 MCG/10ML Syringe IV.PUSH ONE (10:04)
--- NOTE | 2017-12-12 10:33 | GIPROC ---
[facility] [address] [facility]. [facility], [address] COLONOSCOPY PROCEDURE REPORT EXAM DATE: 12/12/2017 PATIENT NAME: Magen Wright MR #: [id number] BIRTHDATE: 1935 ENDOSCOPIST: Alexandra Redd MD ORDER #: [id number] TREE SURGEON: Ana Sears and Nicki Siddiqi STATUS: inpatient INDICATIONS: The patient is a 82 yr old male here for a colonoscopy due to gi bleeding PROCEDURE PERFORMED: Colonoscopy, diagnostic MEDICATIONS: Per Anesthesia and None. PREP QUALITY: good PREP TYPE:Other: ESTIMATED BLOOD LOSS: None CONSENT: The patient understands the risks and benefits of the procedure and understands that these risks include, but are not limited to: sedation, allergic reaction, infection, perforation and/or bleeding. Alternative means of evaluation and treatment include, among others: physical exam, x-rays, and/or surgical intervention. The patient elects to proceed with this endoscopic procedure. medical equipment was checked for proper function. Hand hygiene and appropriate measures for infection prevention was taken. After the risks, benefits and alternatives of the procedure were thoroughly explained, Informed consent was verified, confirmed and timeout was successfully executed by the treatment team. A digital exam revealed an enlarged prostate The Pentax EC-[id number] endoscope was introduced through the anus and advanced to the cecum, which was identified by both the appendix and ileocecal valve. The instrument was then slowly withdrawn as the colon was fully examined. COLON FINDINGS: Diverticulosis sigmoid,descending. Retroflexed views revealed internal hemorrhoids and Retroflexed views revealed small internal hemorrhoids The scope was then completely withdrawn from the patient and the procedure terminated. PROCEDURE WITHDRAWAL TIME:6minutes ADVERSE EVENTS: There were no complications. IMPRESSIONS: 1. Diverticulosis sigmoid,descending 2. Retroflexed views revealed internal hemorrhoids 3. Retroflexed views revealed small internal hemorrhoids 4. Revealed an enlarged prostate RECOMMENDATIONS: 1. Await biopsy results. Biopsy results will not be ready for 7-10 days. If you don't hear from us in two weeks, call our office for results. 2. Benefiber 2 tsp daily 3. Probiotics from any [employer] or health food store 4. Yearly rectal exams 5. Fu with pcp for enlarged prostate ok to [facility] from gi point gi will sign off fu gi 8 weeks ok for anticoagulation if indicated RECALL: Return 10 years Colonoscopy Alexandra Redd MD eSigned: Alexandra Redd MD 12/12/2017 10:33 AM cc: PATIENT NAME: Magen Wright MR#: [id number]
[2017-12-12] MEDS: Pantoprazole Inj 40 MG Vial IV.PUSH SCH (11:36)
--- NOTE | 2017-12-12 12:49 | P.PNIM ---
Subjective Interval history: Chief Complaint: GI BLEEDING History of Present Illness: Patient was seen at 10:50 AM Patient is an 82-year-old male came into the emergency department with a history of pain and rectal bleeding. Patient states last night that he had a sharp pain in his right lower quadrant and lasted for a few seconds. Then he started to have an urge to move his bowels. When he went to the bathroom he noted that he was having liquids stool that was mostly blood. He then had multiple episodes of 4-5+ if not more of bright red blood per rectum. These were all painless. Patient denied any lightheadedness, denies any dizziness, denied any syncopal episodes. Never had rectal bleeding like this before. States he has had a colonoscopy in the past and has had some polyps removed. Denies any nausea or vomiting. He is chronically on aspirin and Plavix. Patient is been noted to have this chronic hematochezia for the past 2 days or so. Been intermittent and now it has been almost every time he had a bowel movement either has blood or stool streaked with with lots of blood Past medical history is significant for hyperlipidemia and hypertension and history of stroke is chronically on aspirin and Plavix and pravastatin only. Has a history of cardiac stenting as well as total replacement of the left shoulder and arthroscopic of left knee and cholecystectomy Family history is positive for hypertension 11-5 had colonoscopy today showed diverticulosis of sigmoid, descending, retroflexed views revealed internal hemorrhoids, retroflexed views revealed small internal hemorrhoids revealed an enlarged prostate can be DCED TO HOME TODAY FOLLOW UP WITH PCP DR Dominguez FOLLOW UP WITH GI IN 2 WEEKS Physical Exam Vital signs: Vital Signs 12/11/17 16:00 12/11/17 16:42 12/11/17 20:00 Temperature 98.1 F 97.5 F L Pulse Rate 86 98 H Respiratory Rate 16 17 Blood Pressure 105/73 144/90 H Pulse Oximetry 95 95 93 L 12/11/17 23:55 12/12/17 00:00 12/12/17 04:00 Temperature 98.0 F 97.4 F L Pulse Rate 97 H 94 H 91 H Respiratory Rate 18 17 Blood Pressure 123/71 103/71 Pulse Oximetry 95 95 12/12/17 08:00 12/12/17 10:40 12/12/17 10:45 Temperature 97.3 F L 97.7 F 97.7 F Pulse Rate 102 H 75 75 Respiratory Rate 16 16 18 Blood Pressure 105/65 95/52 L 97/55 L Pulse Oximetry 96 95 Intake & Output 12/11/17 12/12/17 12/12/17 18:59 06:59 18:59 Intake Total 480 / 480 1000 / 1000 200 / 200 Balance 480 / 480 1000 / 1000 200 / 200 Weight 65.1 kg Intake: IV 1000 / 1000 NS Inj 1,000 ML @ 70 mls/hr IV. 1000 / 1000 CONT .[id number] [facility] Rx#:[id number] Oral 480 / 480 Anesthesia Amount 200 / 200 Other: # Voids 4 2 Date of Last Bowel Movement 12/11/17 12/11/17 12/12/17 # Bowel Movements 3 4 Narrative: Exam Narrative: GENERAL: Awake, alert, anxious, no obvious distress SKIN: Focused skin assessment warm/dry. No obvious rashes HEAD: Atraumatic. Normocephalic. EYES: Pupils equal and round. No scleral icterus. No injection or drainage. PERRLA EOMI ENT: No nasal bleeding or discharge. Mucous membranes pink and moist. Tongue is midline NECK: Trachea midline. No JVD. Neck is supple CARDIOVASCULAR: Regular rate and rhythm. No murmur appreciated. S1-S2 no S3-S4 RESPIRATORY: No accessory muscle use. Clear to auscultation. Breath sounds equal bilaterally. GASTROINTESTINAL: Abdomen soft, non-tender, nondistended. Hepatic and splenic margins not palpable. MUSCULOSKELETAL: No obvious deformities. No clubbing. No cyanosis. No edema. NEUROLOGICAL: Awake and alert. No obvious cranial nerve deficits. Motor grossly within normal limits. Normal speech. PSYCHIATRIC: Appropriate mood and affect; insight and judgment normal. Results - Labs CBC & Chem 7: 12/12/17 12:02 12/12/17 04:37 Laboratory Results - last 24 hr 12/11/17 12/11/17 12/12/17 15:45 16:04 00:59 WBC RBC Hgb 15.3 15.0 Hct MCV MCH MCHC RDW Plt Count MPV Neut % (Auto) Lymph % (Auto) [place] % (Auto) Eos % (Auto) Baso % (Auto) Neut # (Auto) Lymph # (Auto) [place] # (Auto) Eos # (Auto) Baso # (Auto) WBC Differential Differential Comment Sodium Potassium Chloride Carbon Dioxide Anion Gap BUN Creatinine Estimated GFR Random Glucose Calcium Phosphorus Magnesium Total Bilirubin AST ALT Alkaline Phosphatase Total Protein Albumin TSH 1.120 Free T4 1.01 12/12/17 12/12/17 12/12/17 04:37 04:37 08:21 WBC 9.0 RBC 4.37 L Hgb 14.5 15.9 Hct 42.7 MCV 97.8 MCH 33.2 MCHC 34.0 RDW 12.7 Plt Count 109 L MPV 10.3 Neut % (Auto) 74.4 H Lymph % (Auto) 13.3 [place] % (Auto) 9.5 H Eos % (Auto) 2.4 Baso % (Auto) 0.4 Neut # (Auto) 6.7 Lymph # (Auto) 1.2 [place] # (Auto) 0.9 Eos # (Auto) 0.2 Baso # (Auto) 0.0 WBC Differential . Differential Comment Auto diff final Sodium 142 Potassium 4.1 Chloride 104 Carbon Dioxide 27.0 Anion Gap 11 BUN 14 Creatinine 0.78 Estimated GFR Greater than 89 Random Glucose 72 L Calcium 8.3 L D Phosphorus 2.1 L Magnesium 2.1 Total Bilirubin 0.9 AST 37 ALT 39 Alkaline Phosphatase 91 Total Protein 6.6 D Albumin 3.6 D TSH Free T4 12/12/17 12:02 WBC RBC Hgb 14.9 Hct MCV MCH MCHC RDW Plt Count MPV Neut % (Auto) Lymph % (Auto) [place] % (Auto) Eos % (Auto) Baso % (Auto) Neut # (Auto) Lymph # (Auto) [place] # (Auto) Eos # (Auto) Baso # (Auto) WBC Differential Differential Comment Sodium Potassium Chloride Carbon Dioxide Anion Gap BUN Creatinine Estimated GFR Random Glucose Calcium Phosphorus Magnesium Total Bilirubin AST ALT Alkaline Phosphatase Total Protein Albumin TSH Free T4 - Imaging Impressions Abdomen/Pelvis CT 12/11/17 00:00 CONCLUSION: 1. Ruben diverticulosis without perceptible diverticulitis or other acute inflammatory changes. No well-defined or measurable mass. 2. Small hiatal hernia. 3. Liver is mild fatty infiltrated. Previous cholecystectomy. 4. A few benign-appearing cysts of each kidney. Also a small nonobstructing stone of the left kidney. 5. Chronic compression deformity of L2. No acute bony abnormality seen. - Procedures COLONOSCOPY PROCEDURE REPORT EXAM DATE: 12/12/2017 PATIENT NAME: Magen Wright MR #: [id number] BIRTHDATE: 1935 ENDOSCOPIST: Alexandra Redd MD ORDER #: [id number] BACTERIOLOGY TECHNICIAN: Ana Sears and Nicki Siddiqi STATUS: inpatient INDICATIONS: The patient is a 82 yr old male here for a colonoscopy due to gi bleeding PROCEDURE PERFORMED: Colonoscopy, diagnostic MEDICATIONS: Per Anesthesia and None. PREP QUALITY: good PREP TYPE:Other: ESTIMATED BLOOD LOSS: None CONSENT: The patient understands the risks and benefits of the procedure and understands that these risks include, but are not limited to: sedation, allergic reaction, infection, perforation and/or bleeding. Alternative means of evaluation and treatment include, among others: physical exam, x-rays, and/or surgical intervention. The patient elects to proceed with this endoscopic procedure. medical equipment was checked for proper function. Hand hygiene and appropriate measures for infection prevention was taken. After the risks, benefits and alternatives of the procedure were thoroughly explained, Informed consent was verified, confirmed and timeout was successfully executed by the treatment team. A digital exam revealed an enlarged prostate The Pentax [id number] endoscope was introduced through the anus and advanced to the cecum, which was identified by both the appendix and ileocecal valve. The instrument was then slowly withdrawn as the colon was fully examined. COLON FINDINGS: Diverticulosis sigmoid,descending. Retroflexed views revealed internal hemorrhoids and Retroflexed views revealed small internal hemorrhoids The scope was then completely withdrawn from the patient and the procedure terminated. PROCEDURE WITHDRAWAL TIME:6minutes ADVERSE EVENTS: There were no complications. IMPRESSIONS: 1. Diverticulosis sigmoid,descending 2. Retroflexed views revealed internal hemorrhoids 3. Retroflexed views revealed small internal hemorrhoids 4. Revealed an enlarged prostate RECOMMENDATIONS: 1. Await biopsy results. Biopsy results will not be ready for 7-10 days. If you don't hear from us in two weeks, call our office for results. 2. Benefiber 2 tsp daily 3. Probiotics from any [employer] or health food store 4. Yearly rectal exams 5. Fu with pcp for enlarged prostate ok to in home from gi point gi will sign off fu gi 8 weeks ok for anticoagulation if indicated RECALL: Return 10 years Colonoscopy Alexandra Redd MD eSigned: Alexandra Redd MD 12/12/2017 10:33 AM Assessment and Plan - Plan Lower GI bleeding with heme positive stool per the emergency department Suspected diverticular bleed due to the painless component Chronic anticoagulation on aspirin and Plavix with history of stroke and history of coronary artery disease with history of coronary stent History of cardiac stents on chronic aspirin and Plavix both on hold Chronic anticoagulation on aspirin and Plavix Hyperlipidemia on statin Anemia secondary to GI bleeding A.m. labs That is post colonoscopy today which showed diverticulosis and internal hemorrhoids and enlarged prostate Pre CT abdomen and pelvis was ordered-- AND REVIEWED Hypertension by history History of stroke Currently on Protonix twice daily Code Status: FULL CODE Discussed Condition With: RN AND PT AND CM Discharge Planning: DC TO HOME TODAY
--- NOTE | 2017-12-12 12:56 | P.DS ---
Date of admission: 12/11/17 11:58 Primary care physician: Wilma Dominguez MD Attending physician on discharge: Isidoro Daly Anticipated date of discharge: 12/12/17 Brief History from admission: Patient was seen at 10:50 AM Patient is an 82-year-old male came into the emergency department with a history of pain and rectal bleeding. Patient states last night that he had a sharp pain in his right lower quadrant and lasted for a few seconds. Then he started to have an urge to move his bowels. When he went to the bathroom he noted that he was having liquids stool that was mostly blood. He then had multiple episodes of 4-5+ if not more of bright red blood per rectum. These were all painless. Patient denied any lightheadedness, denies any dizziness, denied any syncopal episodes. Never had rectal bleeding like this before. States he has had a colonoscopy in the past and has had some polyps removed. Denies any nausea or vomiting. He is chronically on aspirin and Plavix. Patient is been noted to have this chronic hematochezia for the past 2 days or so. Been intermittent and now it has been almost every time he had a bowel movement either has blood or stool streaked with with lots of blood Past medical history is significant for hyperlipidemia and hypertension and history of stroke is chronically on aspirin and Plavix and pravastatin only. Has a history of cardiac stenting as well as total replacement of the left shoulder and arthroscopic of left knee and cholecystectomy Family history is positive for hypertension Patient update on day of discharge: Chief Complaint: GI BLEEDING History of Present Illness: Patient was seen at 10:50 AM Patient is an 82-year-old male came into the emergency department with a history of pain and rectal bleeding. Patient states last night that he had a sharp pain in his right lower quadrant and lasted for a few seconds. Then he started to have an urge to move his bowels. When he went to the bathroom he noted that he was having liquids stool that was mostly blood. He then had multiple episodes of 4-5+ if not more of bright red blood per rectum. These were all painless. Patient denied any lightheadedness, denies any dizziness, denied any syncopal episodes. Never had rectal bleeding like this before. States he has had a colonoscopy in the past and has had some polyps removed. Denies any nausea or vomiting. He is chronically on aspirin and Plavix. Patient is been noted to have this chronic hematochezia for the past 2 days or so. Been intermittent and now it has been almost every time he had a bowel movement either has blood or stool streaked with with lots of blood Past medical history is significant for hyperlipidemia and hypertension and history of stroke is chronically on aspirin and Plavix and pravastatin only. Has a history of cardiac stenting as well as total replacement of the left shoulder and arthroscopic of left knee and cholecystectomy Family history is positive for hypertension 11-5 had colonoscopy today showed diverticulosis of sigmoid, descending, retroflexed views revealed internal hemorrhoids, retroflexed views revealed small internal hemorrhoids revealed an enlarged prostate can be DCED TO HOME TODAY FOLLOW UP WITH PCP DR Dominguez FOLLOW UP WITH GI IN 2 WEEKS DS: Diagnosis - Discharge Diagnosis (1) Lower GI bleed Status: Acute (2) Hemorrhoids Status: Chronic (3) Hypertension Status: Chronic (4) Hypercholesterolemia Status: Chronic (5) CVA (cerebral vascular accident) Status: Chronic (6) CAD (coronary artery disease) Status: Chronic DS: Medications - Discharge Medications Prescriptions: pantoprazole [Protonix] 40 mg PO BID #60 tab sennosides-docusate sodium [Senna Plus] 1 tab PO BID #60 tab DS: Summary Hospital Course: Chief Complaint: GI BLEEDING History of Present Illness: Patient was seen at 10:50 AM Patient is an 82-year-old male came into the emergency department with a history of pain and rectal bleeding. Patient states last night that he had a sharp pain in his right lower quadrant and lasted for a few seconds. Then he started to have an urge to move his bowels. When he went to the bathroom he noted that he was having liquids stool that was mostly blood. He then had multiple episodes of 4-5+ if not more of bright red blood per rectum. These were all painless. Patient denied any lightheadedness, denies any dizziness, denied any syncopal episodes. Never had rectal bleeding like this before. States he has had a colonoscopy in the past and has had some polyps removed. Denies any nausea or vomiting. He is chronically on aspirin and Plavix. Patient is been noted to have this chronic hematochezia for the past 2 days or so. Been intermittent and now it has been almost every time he had a bowel movement either has blood or stool streaked with with lots of blood Past medical history is significant for hyperlipidemia and hypertension and history of stroke is chronically on aspirin and Plavix and pravastatin only. Has a history of cardiac stenting as well as total replacement of the left shoulder and arthroscopic of left knee and cholecystectomy Family history is positive for hypertension 11-5 had colonoscopy today showed diverticulosis of sigmoid, descending, retroflexed views revealed internal hemorrhoids, retroflexed views revealed small internal hemorrhoids revealed an enlarged prostate can be DCED TO HOME TODAY FOLLOW UP WITH PCP DR Dominguez FOLLOW UP WITH GI IN 2 WEEKS - Time Spent with Patient Total time spent providing and/or coordinating discharge services: Greater than 30 minutes - Quality: VTE Deep Vein Thrombosis/Pulmonary Embolism Present on Admission: No Exam Vital signs: Vital Signs 12/11/17 16:00 12/11/17 16:42 12/11/17 20:00 Temperature 98.1 F 97.5 F L Pulse Rate 86 98 H Respiratory Rate 16 17 Blood Pressure 105/73 144/90 H Pulse Oximetry 95 95 93 L 12/11/17 23:55 12/12/17 00:00 12/12/17 04:00 Temperature 98.0 F 97.4 F L Pulse Rate 97 H 94 H 91 H Respiratory Rate 18 17 Blood Pressure 123/71 103/71 Pulse Oximetry 95 95 12/12/17 08:00 12/12/17 10:40 12/12/17 10:45 Temperature 97.3 F L 97.7 F 97.7 F Pulse Rate 102 H 75 75 Respiratory Rate 16 16 18 Blood Pressure 105/65 95/52 L 97/55 L Pulse Oximetry 96 95 Intake & Output 12/11/17 12/12/17 12/12/17 18:59 06:59 18:59 Intake Total 480 / 480 1000 / 1000 200 / 200 Balance 480 / 480 1000 / 1000 200 / 200 Weight 65.1 kg Intake: IV 1000 / 1000 NS Inj 1,000 ML @ 70 mls/hr IV. 1000 / 1000 CONT .[id number] TITA Rx#:[id number] Oral 480 / 480 Anesthesia Amount 200 / 200 Other: # Voids 4 2 Date of Last Bowel Movement 12/11/17 12/11/17 12/12/17 # Bowel Movements 3 4 Narrative: Exam Narrative: GENERAL: Awake, alert, anxious, no obvious distress SKIN: Focused skin assessment warm/dry. No obvious rashes HEAD: Atraumatic. Normocephalic. EYES: Pupils equal and round. No scleral icterus. No injection or drainage. PERRLA EOMI ENT: No nasal bleeding or discharge. Mucous membranes pink and moist. Tongue is midline NECK: Trachea midline. No JVD. Neck is supple CARDIOVASCULAR: Regular rate and rhythm. No murmur appreciated. S1-S2 no S3-S4 RESPIRATORY: No accessory muscle use. Clear to auscultation. Breath sounds equal bilaterally. GASTROINTESTINAL: Abdomen soft, non-tender, nondistended. Hepatic and splenic margins not palpable. MUSCULOSKELETAL: No obvious deformities. No clubbing. No cyanosis. No edema. NEUROLOGICAL: Awake and alert. No obvious cranial nerve deficits. Motor grossly within normal limits. Normal speech. PSYCHIATRIC: Appropriate mood and affect; insight and judgment normal. Results Procedures completed during hospitalization: COLONOSCOPY PROCEDURE REPORT EXAM DATE: 12/12/2017 PATIENT NAME: Magen Wright MR #: [id number] BIRTHDATE: 1935 ENDOSCOPIST: Alexandra Redd MD ORDER #: [id number] TERRA COTTA [place]: Ana Sears and Nicki Siddiqi STATUS: inpatient INDICATIONS: The patient is a 82 yr old male here for a colonoscopy due to gi bleeding PROCEDURE PERFORMED: Colonoscopy, diagnostic MEDICATIONS: Per Anesthesia and None. PREP QUALITY: good PREP TYPE:Other: ESTIMATED BLOOD LOSS: None CONSENT: The patient understands the risks and benefits of the procedure and understands that these risks include, but are not limited to: sedation, allergic reaction, infection, perforation and/or bleeding. Alternative means of evaluation and treatment include, among others: physical exam, x-rays, and/or surgical intervention. The patient elects to proceed with this endoscopic procedure. medical equipment was checked for proper function. Hand hygiene and appropriate measures for infection prevention was taken. After the risks, benefits and alternatives of the procedure were thoroughly explained, Informed consent was verified, confirmed and timeout was successfully executed by the treatment team. A digital exam revealed an enlarged prostate The Pentax [id number] endoscope was introduced through the anus and advanced to the cecum, which was identified by both the appendix and ileocecal valve. The instrument was then slowly withdrawn as the colon was fully examined. COLON FINDINGS: Diverticulosis sigmoid,descending. Retroflexed views revealed internal hemorrhoids and Retroflexed views revealed small internal hemorrhoids The scope was then completely withdrawn from the patient and the procedure terminated. PROCEDURE WITHDRAWAL TIME:6minutes ADVERSE EVENTS: There were no complications. IMPRESSIONS: 1. Diverticulosis sigmoid,descending 2. Retroflexed views revealed internal hemorrhoids 3. Retroflexed views revealed small internal hemorrhoids 4. Revealed an enlarged prostate RECOMMENDATIONS: 1. Await biopsy results. Biopsy results will not be ready for 7-10 days. If you don't hear from us in two weeks, call our office for results. 2. Benefiber 2 tsp daily 3. Probiotics from any [employer] or health food store 4. Yearly rectal exams 5. Fu with pcp for enlarged prostate ok to dc home from gi point gi will sign off fu gi 8 weeks ok for anticoagulation if indicated RECALL: Return 10 years Colonoscopy Alexandra Redd MD eSigned: Alexandra Redd MD 12/12/2017 10:33 AM Completed studies during hospitalization: Laboratory Results WBC 9.0 th/mm3 (4.0-11.0) 12/12/17 04:37 RBC 4.37 mil/mm3 (4.50-5.90) L 12/12/17 04:37 Hgb 14.9 gm/dL (13.0-17.0) 12/12/17 12:02 Hct 42.7 % (39.0-51.0) 12/12/17 04:37 MCV 97.8 fL (80.0-100.0) 12/12/17 04:37 MCH 33.2 pg (27.0-34.0) 12/12/17 04:37 MCHC 34.0 % (32.0-36.0) 12/12/17 04:37 RDW 12.7 % (11.6-17.2) 12/12/17 04:37 Plt Count 109 th/mm3 (150-450) L 12/12/17 04:37 MPV 10.3 fL (7.0-11.0) 12/12/17 04:37 Neut % (Auto) 74.4 % (16.0-70.0) H 12/12/17 04:37 Lymph % (Auto) 13.3 % (9.0-44.0) 12/12/17 04:37 [place] % (Auto) 9.5 % (0.0-8.0) H 12/12/17 04:37 Eos % (Auto) 2.4 % (0.0-4.0) 12/12/17 04:37 Baso % (Auto) 0.4 % (0.0-2.0) 12/12/17 04:37 Neut # (Auto) 6.7 th/mm3 (1.8-7.7) 12/12/17 04:37 Lymph # (Auto) 1.2 th/mm3 (1.0-4.8) 12/12/17 04:37 [place] # (Auto) 0.9 th/mm3 (0.0-0.9) 12/12/17 04:37 Eos # (Auto) 0.2 th/mm3 (0.0-0.4) 12/12/17 04:37 Baso # (Auto) 0.0 th/mm3 (0.0-0.2) 12/12/17 04:37 WBC Differential . 12/12/17 04:37 Differential Comment Auto diff final 12/12/17 04:37 PT 10.6 sec (9.8-11.6) 12/11/17 03:54 INR 1.0 Ratio 12/11/17 03:54 APTT 22.4 sec (23.4-31.7) L 12/11/17 03:54 Sodium 142 meq/L (136-145) 12/12/17 04:37 Potassium 4.1 meq/L (3.5-5.1) 12/12/17 04:37 Chloride 104 meq/L (98-107) 12/12/17 04:37 Carbon Dioxide 27.0 meq/L (21.0-32.0) 12/12/17 04:37 Anion Gap 11 meq/L (5-15) 12/12/17 04:37 BUN 14 mg/dL (7-18) 12/12/17 04:37 Creatinine 0.78 mg/dL (0.60-1.30) 12/12/17 04:37 Estimated GFR Greater than 89 mL/min (>89) 12/12/17 04:37 Random Glucose 72 mg/dL (74-106) L 12/12/17 04:37 Calcium 8.3 mg/dL (8.5-10.1) L D 12/12/17 04:37 Phosphorus 2.1 mg/dL (2.5-4.9) L 12/12/17 04:37 Magnesium 2.1 mg/dL (1.5-2.5) 12/12/17 04:37 Total Bilirubin 0.9 mg/dL (0.2-1.0) 12/12/17 04:37 AST 37 U/L (15-37) 12/12/17 04:37 ALT 39 U/L (12-78) 12/12/17 04:37 Alkaline Phosphatase 91 U/L (45-117) 12/12/17 04:37 Total Protein 6.6 g/dL (6.4-8.2) D 12/12/17 04:37 Albumin 3.6 g/dL (3.4-5.0) D 12/12/17 04:37 TSH 1.120 uIU/mL (0.358-3.740) 12/11/17 16:04 Free T4 1.01 ng/dL (0.76-1.46) 12/11/17 16:04 Blood Type A Positive 12/11/17 03:54 Blood Type Recheck Required 12/11/17 03:54 Antibody Screen Negative 12/11/17 03:54 Impressions Abdomen/Pelvis CT 12/11/17 00:00 CONCLUSION: 1. Ruben diverticulosis without perceptible diverticulitis or other acute inflammatory changes. No well-defined or measurable mass. 2. Small hiatal hernia. 3. Liver is mild fatty infiltrated. Previous cholecystectomy. 4. A few benign-appearing cysts of each kidney. Also a small nonobstructing stone of the left kidney. 5. Chronic compression deformity of L2. No acute bony abnormality seen. Labs on day of discharge: Labs from last 24 hours 12/12/17 12/12/17 12/12/17 12:02 08:21 04:37 WBC RBC Hgb 14.9 15.9 Hct MCV MCH MCHC RDW Plt Count MPV Neut % (Auto) Lymph % (Auto) [place] % (Auto) Eos % (Auto) Baso % (Auto) Neut # (Auto) Lymph # (Auto) [place] # (Auto) Eos # (Auto) Baso # (Auto) WBC Differential Differential Comment Sodium 142 Potassium 4.1 Chloride 104 Carbon Dioxide 27.0 Anion Gap 11 BUN 14 Creatinine 0.78 Estimated GFR Greater than 89 Random Glucose 72 L Hemoglobin A1c Calcium 8.3 L D Phosphorus 2.1 L Magnesium 2.1 Total Bilirubin 0.9 AST 37 ALT 39 Alkaline Phosphatase 91 Total Protein 6.6 D Albumin 3.6 D TSH Free T4 12/12/17 12/12/17 12/11/17 04:37 00:59 16:04 WBC 9.0 RBC 4.37 L Hgb 14.5 15.0 Hct 42.7 MCV 97.8 MCH 33.2 MCHC 34.0 RDW 12.7 Plt Count 109 L MPV 10.3 Neut % (Auto) 74.4 H Lymph % (Auto) 13.3 [place] % (Auto) 9.5 H Eos % (Auto) 2.4 Baso % (Auto) 0.4 Neut # (Auto) 6.7 Lymph # (Auto) 1.2 [place] # (Auto) 0.9 Eos # (Auto) 0.2 Baso # (Auto) 0.0 WBC Differential . Differential Comment Auto diff final Sodium Potassium Chloride Carbon Dioxide Anion Gap BUN Creatinine Estimated GFR Random Glucose Hemoglobin A1c Calcium Phosphorus Magnesium Total Bilirubin AST ALT Alkaline Phosphatase Total Protein Albumin TSH 1.120 Free T4 1.01 12/11/17 12/11/17 15:45 15:45 WBC RBC Hgb 15.3 Hct MCV MCH MCHC RDW Plt Count MPV Neut % (Auto) Lymph % (Auto) [place] % (Auto) Eos % (Auto) Baso % (Auto) Neut # (Auto) Lymph # (Auto) [place] # (Auto) Eos # (Auto) Baso # (Auto) WBC Differential Differential Comment Sodium Potassium Chloride Carbon Dioxide Anion Gap BUN Creatinine Estimated GFR Random Glucose Hemoglobin A1c Pending Calcium Phosphorus Magnesium Total Bilirubin AST ALT Alkaline Phosphatase Total Protein Albumin TSH Free T4 - Impressions ITS Impressions Abdomen/Pelvis CT 12/11/17 00:00 CONCLUSION: 1. Ruben diverticulosis without perceptible diverticulitis or other acute inflammatory changes. No well-defined or measurable mass. 2. Small hiatal hernia. 3. Liver is mild fatty infiltrated. Previous cholecystectomy. 4. A few benign-appearing cysts of each kidney. Also a small nonobstructing stone of the left kidney. 5. Chronic compression deformity of L2. No acute bony abnormality seen. Discharge Plan - Discharge Disposition Patient Disposition: 01 Discharge Home - Discharge Condition Condition: Good - Discharge Order Discharge Orders: Discharge Order (Routine); Ordered 12/12/17 Ordered By: Isidoro Daly - Discharge Details Anticipated Discharge Date: 12/12/17 Discharge Comment: DC TO HOME TODAY - Physicians Team Primary Care Provider: Wilma Dominguez Attending Provider: Isidoro Daly Other Providers: Alexandra Redd MD
[2017-12-12 17:03] LABS: Hemoglobin A1c 5.3 % (4.3-6.0)
--- NOTE | 2017-12-12 21:16 | ECG ---
Date Performed: 12/11/2017 Time Performed: 19:31:58 PTAGE: 82 years EKG: Sinus rhythm WITH OCCASIONAL VENTRICULAR PREMATURE COMPLEXES BORDERLINE ECG NO PREVIOUS TRACING DOCTOR: Pascual Holcomb Interpretating Date/Time 12/12/2017 21:15:44
== END 2017-12-12 16:07 | disposition home or self-care (01) ==
LOC: NEPE 00:25 → NEDA 00:25 → N06 07:20
PROVIDERS: ADMIT Hospitalist; ATTEND Hospitalist
PROC: COLONOS (2017-12-12 09:57)